=== PATIENT | female | born 1965 ===

== ENCOUNTER 2016-09-21 17:49 | Emergency (ER) | payer OTHER ==
[2016-09-21 17:56] VITALS: BP 98/73; PULSE 112; RESP 16; TEMP 98.2; O2SAT 100
[2016-09-21] MEDS ORDERED: DiphenhydrAMINE 50 mg/ml Inj IVP STA (18:05)
[2016-09-21] MEDS ORDERED: Sodium Chloride 0.9% 1,000 ML IV STA ×2 (18:05→20:00)
[2016-09-21] MEDS ORDERED: DiphenhydrAMINE 50 mg/ml Inj ONE (18:19)
--- NOTE | 2016-09-21 18:21 | ED PDOC ---
HPI: Allergic Reaction Time Seen by Provider: 09/21/16 18:05 Chief Complaint (Nursing): Allergic Reaction Chief Complaint (Provider): allergic reaction History Per: Patient History/Exam Limitations: no limitations Additional Complaint(s): 51yo F in ED for eval of acute allergic reaction with hoarseness of voice and hives diffuse ot body after drinking chocolate milk and celery water. PT denies having similar symptoms in the past. denies abd pain, CP , SOB, swelling to ext. , lips, eyes, or tongue. nausea or vomiting. Past Medical History Reviewed: Historical Data, Nursing Documentation, Vital Signs Vital Signs: Last Vital Signs Temp 98.2 F 09/21/16 17:53 Pulse 112 H 09/21/16 17:53 Resp 16 09/21/16 17:53 BP 98/73 L 09/21/16 17:53 Pulse Ox 100 09/21/16 17:53 - Medical History PMH: Diabetes - Surgical History Surgical History: - Family History Family History: States: No Known Family Hx - Home Medications Home Medications: Ambulatory Orders Medication Instructions Recorded Dicyclomine [Bentyl] 20 mg PO BID PRN #30 tab 04/28/16 Cetirizine HCl [Zyrtec] 10 mg PO DAILY #30 cap 09/21/16 Famotidine [Pepcid] 20 mg PO BID #16 tab 09/21/16 predniSONE [predniSONE Tab] 20 mg PO BID #8 tab 09/21/16 - Allergies Allergies/Adverse Reactions: Allergies Allergy/AdvReac Type Severity Reaction Status Date / Time almond Allergy RASH Verified 09/21/16 19:10 Review of Systems ROS Statement: Except As Marked, All Systems Reviewed And Found Negative Respiratory: Negative for: Cough, Shortness of Breath Skin: Positive for: Rash Physical Exam - Reviewed Nursing Documentation Reviewed: Yes Vital Signs Reviewed: Yes - Physical Exam Appears: Positive for: Non-toxic, No Acute Distress Head Exam: Positive for: ATRAUMATIC, NORMAL INSPECTION, NORMOCEPHALIC Skin: Positive for: Warm, Rash (hives difuse to full body. ) Eye Exam: Positive for: Normal appearance, EOMI, PERRL. Negative for: Periorbital swelling ENT: Positive for: Normal ENT Inspection, TM Is/Are (NAD), Other (no tongue swelling). Negative for: Tonsillar Swelling Neck: Positive for: Normal, Painless ROM Cardiovascular/Chest: Positive for: Regular Rate, Rhythm Respiratory: Positive for: CNT, Normal Breath Sounds Gastrointestinal/Abdominal: Positive for: Normal Exam, Bowel Sounds, Soft. Negative for: Tenderness Back: Positive for: Normal Inspection Extremity: Positive for: Normal ROM. Negative for: Swelling Neurologic/Psych: Positive for: Alert, Oriented - Laboratory Results Result Diagrams: 09/21/16 18:10 09/21/16 18:10 - ECG O2 Sat by Pulse Oximetry: 100 - Progress ED Course And Treament: impression acute allergic reaction will tx with NS, pepcid, Benadryl and solumedrol re-eval. Pt with elevated BS serum >400. PT may be a result of the acute allergic reaction. pt given NS fluids, and insulin 7units SC. Pt normally take metformin. will re-eval with FS. normal K+ and NA+ however CO2 is low. will order ABG. case discussed with cierra. Re-evaluation Time: 19:22 Condition: Improved (pt improved in ED-no longer with hives. ) Disposition - Clinical Impression Clinical Impression: Acute allergic reaction, Elevated blood sugar - Patient ED Disposition Is Patient to be Admitted: No Counseled Patient/Family Regarding: Studies Performed, Diagnosis, Need For Followup, Rx Given - Disposition Referrals: [facility] [Outside] Disposition: Routine/Home Disposition Time: 20:00 Condition: IMPROVED Prescriptions: Cetirizine HCl [Zyrtec] 10 mg PO DAILY #30 cap Famotidine [Pepcid] 20 mg PO BID #16 tab predniSONE [predniSONE Tab] 20 mg PO BID #8 tab Instructions: Urticaria (ED) Forms: [employer] (Algerian) Print Language: MARSHALLESE Patient Signed Over To: Deborah Miller (\) Handoff Comments: pending labs
[2016-09-21 18:47] LABS: BASO % 0.5 % (0.0-2.0); EOS # 0.1 K/uL (0.0-0.7); EOS % 0.7 % (0.0-4.0); HEMOGLOBIN 14.8 g/dL (12.0-16.0); LYMPH # 2.1 K/uL (1.0-4.3); LYMPH % 23.9 % (20.0-40.0); MEAN CELL VOLUME 91.8 fl (81.0-99.0); MEAN CORPUSCULAR HEMOGLOBIN 30.5 pg (27.0-31.0); MEAN CORPUSCULAR HGB CONC 33.3 g/dL (33.0-37.0); MEAN PLATELET VOLUME 9.2 fl (7.2-11.7); MONO # 0.5 K/uL (0.0-0.8); MONO % 5.8 % (0.0-10.0); NEUT % 69.1 % (50.0-75.0); RBC 4.86 Mil/uL (3.80-5.20); RED CELL DISTRIBUTION WIDTH 13.2 % (11.5-14.5); WHITE BLOOD COUNT 8.7 K/uL (4.8-10.8)
[2016-09-21 18:55] LABS: ALB/GLOB RATIO 1.3 (1.0-2.1); ALBUMIN 3.6 g/dL (3.5-5.0); ALT/SGPT 33 U/L (9-52); AST/SGOT 24 U/L (14-36); BLOOD UREA NITROGEN 16 mg/dl (7-17); CALCIUM 8.9 mg/dL (8.4-10.2); GFR AFRICAN-AMERICAN > 60; GFR NON-AFRICAN AMERICAN > 60
[2016-09-21] MEDS ORDERED: Insulin Regular 100 units/ml SC STA (19:19)
[2016-09-21] MEDS ORDERED: Insulin Regular 100 units/ml ONE (19:35)
[2016-09-21 20:20] LABS: SQUAMOUS EPITHIAL 6 /hpf (0-5); URINE BACTERIA RARE (<OCC); URINE BILIRUBIN NEGATIVE (NEGATIVE); URINE BLOOD NEGATIVE (NEGATIVE); URINE CLARITY CLOUDY (Clear); URINE COLOR AMBER (YELLOW); URINE GLUCOSE (UA) >=500 mg/dL (Normal); URINE LEUKOCYTE ESTERASE NEG Leu/uL (Negative); URINE NITRATE NEGATIVE (NEGATIVE); URINE PROTEIN 100 mg/dL (NEGATIVE); URINE UROBILINOGEN 0.2-1.0 mg/dL (0.2-1.0)
[2016-09-21 20:56] LABS: ABG ALLEN TEST YES; ARTERIAL BLOOD GAS HCO3 21.1 mmol/L (21-28); ARTERIAL BLOOD GAS HEMOGLOBIN 14.9 g/dL (11.7-17.4); ARTERIAL BLOOD GAS O2 CAPACITY 19.5 mL/dL (16-24); ARTERIAL BLOOD GAS O2 CONTENT 19.1 ML/dL (15-23); ARTERIAL BLOOD GAS PCO2 34 mm/Hg (35-45); ARTERIAL BLOOD GAS PH 7.37 (7.35-7.45); ARTERIAL BLOOD GAS PO2 79 mm/Hg (80-100); ARTERIAL BLOOD GAS TCO2 20.7 mmol/L (22-28)
--- NOTE | 2016-09-21 21:33 | ED PDOC ---
- Laboratory Results Result Diagrams: 09/21/16 18:10 09/21/16 18:10 - ECG O2 Sat by Pulse Oximetry: 100 Disposition - Clinical Impression Clinical Impression: Acute allergic reaction, Elevated blood sugar - POA Present On Arrival: None - Disposition Referrals: [facility] [Outside] Disposition: Routine/Home Disposition Time: 21:33 Condition: IMPROVED Prescriptions: Cetirizine HCl [Zyrtec] 10 mg PO DAILY #30 cap Famotidine [Pepcid] 20 mg PO BID #16 tab predniSONE [predniSONE Tab] 20 mg PO BID #8 tab Instructions: Urticaria (ED) Forms: [facility] (Sinhala) Print Language: JAPANESE
== END 2016-09-21 22:05 | disposition home or self-care (01) ==
LOC: H.ER 17:49
DX: T78.40XA Allergy, unspecified, initial encounter (principal); E11.65 Type 2 diabetes mellitus with hyperglycemia